=== PATIENT | female | born 1990 | race Caucasian/White ===

== ENCOUNTER 2024-02-03 18:35 | Emergency (ER) | payer MEDICAID, SELFPAY ==
--- NOTE | 2024-02-03 | ECG_ITS ---
Test Reason : CHEST PAIN Blood Pressure : / mmHG Vent. Rate : 105 BPM Atrial Rate : 105 BPM P-R Int : 128 ms QRS Dur : 080 ms QT Int : 360 ms P-R-T Axes : 028 -09 004 degrees QTc Int : 475 ms Sinus tachycardia Minimal voltage criteria for LVH, may be normal variant ( R in aVL ) Septal infarct , age undetermined Abnormal ECG No previous ECGs available Referred By: Generic ED Physician Electronically Signed By:BENJA ACOSTA
--- NOTE | 2024-02-03 18:49 | ED_ITS ---
HPI - Chest Pain General Chief Complaint: General Medical Stated Complaint: chest pain Time Seen by Provider: 02/03/24 19:58 Source: patient Mode of arrival: ambulatory Limitations: language barrier (Patient speaks [place] Creole) History of Present Illness ED Provider: Dr. Carlos Monique HPI narrative: 33-year-old female with no significant past medical history who presents emergency department for evaluation of left breast pain, redness, swelling and drainage from the nipple. Patient states that she has been having left breast pain for 1 month. She states that over the last 2 weeks the pain is gotten worse and she has developed redness and pruritus to the breasts. She states that over the last 3 days she had subjective fever and chills. She denied fatigue, nausea, vomiting, weakness. She denied shortness of breath, dyspnea on exertion. Related Data Previous Rx's ?Medication ?Instructions ?Recorded cephalexin 500 mg capsule 500 mg PO QID 7 days #28 caps 02/03/24 Allergies Allergy/AdvReac Type Severity Reaction Status Date / Time No Known Allergies Allergy Verified 02/03/24 19:06 Review of Systems Review of Systems: Yes all other systems are reviewed and are negative [facility] Social History Social History Advance Directives: No Advance Directives Information Provided: No Do you have a plan to hurt others: No Plan Physical Exam Vital Signs: Vital Signs: Last Vital Signs Temp 98.2 F 02/03/24 20:34 Pulse 101 H 02/03/24 20:34 Resp 18 02/03/24 20:34 BP 136/89 02/03/24 20:34 Pulse Ox 98 02/03/24 20:34 O2 Del Method Room Air 02/03/24 20:34 BMI result Body Mass Index 31.0 Vital signs revealed an elevated blood pressure of 148/94 and elevated heart rate of 117. Exam: General: Patient was awake and alert and in no distress. Answers all questions appropriately. Breast exam: Patient has an area of erythema to the right breast medial to the nipple which is warm to the touch and painful to touch. The skin is indurated but there is no flocculence. Course Course Course Narrative: This is a rapid medical exam. Deferred additional HPI, ROS, PE to primary provider. 33 yo female with no PMH here with left breast redness, swelling, itching, pain x 1 month with nipple discharge. Does have insurance, no PCP, trying to get one. Has never had a mammogram. No family history of breast cancer. Will obtain US to r/o abscess Likely will need outpatient f/u. ALVARO Friedman. Marcell PHILLIPS Medications Administered Discontinued Medications Generic Name Dose Route Start Last Admin Trade Name Freq PRN Reason Stop Dose Admin Cephalexin HCl 500 mg 02/03/24 20:23 02/03/24 20:31 Cephalexin 500 Mg Capsule PO 02/03/24 20:24 500 mg ONCE ONE Administration Medical Decision Making Medical Decision Making MDM Narrative: 33-year-old female with no significant past medical history who presents emergency department for evaluation of left breast pain x1 month with increased pain x2 weeks with erythema, subjective fever and chills x3 days. Patient's vital signs revealed an elevated blood pressure of 148/94 elevated heart rate of 117. Right breast exam did reveal erythema medial to the nipple with increased warmth and pain to palpation. Differential diagnosis: ?Includes but is not limited to mastitis, breast abscess, breast cancer Patient was initially treated with the following: Keflex 500 mg orally, ibuprofen 400 mg orally Course: 20:35 Patient's physical examination is consistent with mastitis. The patient was started on Keflex 500 mg 4 times a day for 7 days and given her 1st dose here in the emergency department. She was also given ibuprofen 400 mg orally for her p ain. Patient was given printed and verbal instructions and discharged home. Prescription Management I considered prescription management with: Antibiotic Discharge Plan Discharge Clinical Impression: Acute mastitis of left breast Patient Disposition: Home, Self-Care Instructions: Mastitis (ED) Additional Instructions: Your symptoms and your exam are consistent with an infection of your left breast. Take Keflex (cephalexin) 500 mg pills, 1 pill 3 times a day for 7 days. Take ibuprofen 200 mg pills, 2 pills every 6 hours as needed for pain or fever. Take Tylenol (acetaminophen) 500 mg pills, 2 pills every 6 hours as needed for pain or fever. Apply heat to the red area on your left breast for 15 minutes 4 times a day. Heat will increase the blood flow to the area and help the healing process. You will need to follow-up with the primary care doctor to arrange a mammogram as an outpatient to make sure that you do not have breast cancer as the cause of your pain. Follow-up with your doctor in 2 days. Please return to the emergency department if your symptoms get worse or if you develop any symptoms that are concerning to you. Try calling the following numbers to see if you can get a primary care provider to help you with your medical problems. [facility] PCP referral line [facility] Adult primary care and family medicine [facility] Prescriptions: New cephalexin 500 mg capsule 500 mg PO QID 7 Days Qty: 28 0RF Discharge Date/Time: 02/03/24 20:35 Print Language: Shanna Bains
[2024-02-03 19:04] VITALS: BP 148/94; PULSE 117; RESP 18; TEMP 36.9; O2SAT 98; BMI 31.0
[2024-02-03] MEDS: cephALEXin 500 MG CAPSULE PO (20:31)
--- NOTE | 2024-02-03 20:33 | PC.NURSE ---
bedside exam performed- svp monetization used. 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
[2024-02-03 20:34] VITALS: BP 136/89; PULSE 101; RESP 18; TEMP 36.8; O2SAT 98
== END 2024-02-03 20:35 | disposition home or self-care (01) ==
PROVIDERS: Emergency Provider Emergency Medicine Emergency Medical Services
DX: N64.4 Mastodynia (principal)
CPT/HCPCS: 93005; 99283